=== PATIENT | male | born 1970 | race Caucasian/White ===

== ENCOUNTER 2022-12-06 10:40 | Outpatient (CLI) | payer OTHER, SELFPAY ==
[2022-12-06 17:24] LABS: Chloride* 106 mmol/L (96-114); Sodium* 139 mmol/L (135-149)
[2022-12-06 17:25] LABS: Potassium* 5.4 mmol/L (3.6-5.1)
[2022-12-06 17:27] LABS: Carbon Dioxide* 28 mmol/L (20-32); Cholesterol* 136 mg/dL (90-199); Creatinine* 0.8 mg/dL (0.5-1.5); Estimated Glomerular Filt Rate 105 ml/min
[2022-12-06 17:28] LABS: Blood Urea Nitrogen* 15 mg/dL (7-30); Calcium* 9.4 mg/dL (8.4-10.6); Glucose* 95 mg/dL (60-115); HDL Cholesterol* 38 mg/dL (>=40); LDL Cholesterol Calculated 72 mg/dL (<100); Triglycerides* 132 mg/dL (40-149)
[2022-12-06 18:42] LABS: PSA Screen* 0.84 ng/mL (0.10-4.00)
== END 2022-12-06 10:41 | disposition home or self-care (01) ==
PROVIDERS: PCP Family Medicine; Visit Provider Family Medicine
DX: I10 Essential (primary) hypertension (principal); E78.5 Hyperlipidemia, unspecified; Z12.5 Encounter for screening for malignant neoplasm of prostate
CPT/HCPCS: 80048; 80061; 84153

== ENCOUNTER 2024-01-24 13:32 | Outpatient (CLI) | payer MEDICAID, SELFPAY | END 2024-01-24 13:33 | disposition home or self-care (01) | PROVIDERS: PCP Family Medicine; Visit Provider Nurse Practitioner Family | DX: I10 Essential (primary) hypertension (principal); E78.2 Mixed hyperlipidemia; Z12.5 Encounter for screening for malignant neoplasm of prostate | CPT/HCPCS: 80053; 80061; G0103 ==

== ENCOUNTER 2024-07-24 12:55 | Outpatient (CLI) | payer MEDICAID, SELFPAY | END 2024-07-24 12:56 | disposition home or self-care (01) | LOC: LKVREF 12:56 | PROVIDERS: PCP Family Medicine; Visit Provider Nurse Practitioner Family | DX: R59.1 Generalized enlarged lymph nodes (principal) | CPT/HCPCS: 86618 ==

== ENCOUNTER 2025-05-05 10:00 | Outpatient (CLI) | payer MEDICAID, SELFPAY | END 2025-05-05 10:01 | disposition home or self-care (01) | PROVIDERS: PCP Family Medicine; Visit Provider Family Medicine | DX: E78.2 Mixed hyperlipidemia (principal); Z12.5 Encounter for screening for malignant neoplasm of prostate | CPT/HCPCS: 80061; G0103 ==